=== PATIENT | male | born 1965 | race Two or more races ===

== ENCOUNTER 2016-11-23 17:54 | Emergency (ER) | payer BC | END 2016-11-23 18:34 | disposition left against medical advice (07) | LOC: ER 18:05 | DX: R10.9 Unspecified abdominal pain (principal); Z53.21 Procedure and treatment not carried out due to patient leaving prior to being seen by health care provider ==

== ENCOUNTER 2019-12-24 06:31 | Inpatient (IN) | payer BC ==
[~2019-12-24] VITALS: Ht 177.8 cm; Wt 79.3 kg
[~2019-12-24 06:31] MED LIST: ASPI-543 PO; ATOR20TA50 PO; INSU0.2I SC; LISI-646 PO; METF-370 PO; METO25TA5 PO; NITR0.4S29 SL
[2019-12-24] MEDS ORDERED: HEPARIN SODIUM (PORCINE) 5000 UNITS/ML 1ML VIAL ONE (07:50)
[2019-12-24] MEDS ORDERED: ANGIOMAX 250 MG VIAL IV ONE (07:50)
[2019-12-24] MEDS ORDERED: fentaNYL CITRATE 100 MCG/2 ML VL ONE (07:51)
[2019-12-24] MEDS ORDERED: IODIXANOL 320MG/ML 100ML BTL IV ONE (07:51)
[2019-12-24] MEDS ORDERED: SODIUM CHL 0.9% 0 ML ONE (07:51)
[2019-12-24] MEDS ORDERED: VERAPAMIL 2.5MG/ML INJ 2ML VIAL IV ONE (07:51)
[2019-12-24] MEDS ORDERED: MIDAZOLAM HCL 1MG/1ML-2 ML VIAL ONE (07:51)
[2019-12-24] MEDS ORDERED: LIDOCAINE 2%HCL (LOCAL ANESTH.) INJ 20ML MDV ONE (07:52)
[2019-12-24] MEDS ORDERED: diphenhdrAMINE HCL 50 MG/1 ML VL ONE (08:11)
[2019-12-24] MEDS ORDERED: HEPARIN DRIP/D5W 100UNITS/ML 250 ML IV SCH (08:37)
[2019-12-24] MEDS ORDERED: ONDANSETRON HCL 4 MG/2 ML VIAL IV PRN (08:45)
[2019-12-24] MEDS ORDERED: ACETAMINOPHEN 500 MG TAB PO PRN (08:45)
[2019-12-24] MEDS ORDERED: MORPHINE SULF INJ 2 MG/ML SYRINGE 1ML IV PRN (08:45)
[2019-12-24] MEDS ORDERED: HYDROcodone-ACET 5/325MG TAB PO PRN (08:45)
[2019-12-24] MEDS ORDERED: NITROGLYCERIN 0.4 MG SL TAB SL PRN (08:45)
[2019-12-24] MEDS ORDERED: hydrALAZINE HCL 20 MG/ML VL IV PRN (09:15)
[2019-12-24] MEDS ORDERED: LABETALOL HCL 5 MG/ML ML 20ML VIAL IV PRN (09:23)
[2019-12-24 09:30] LABS: Basophils # (auto) 0.1 10 ^3/uL (0-0.2); Basophils % (auto) 0.7 % (0.0-2.0); Eosinophils # (auto) 0.4 10 ^3/uL (0-0.8); Eosinophils % (auto) 3.2 % (0.0-7.0); Hematocrit 41.8 % (41.0-53.0); Hemoglobin 13.5 g/dL (13.5-17.5); Lymphocytes # (auto) 2.3 10 ^3/uL (0.4-5.4); Lymphocytes % (auto) 20.1 % (10.0-50.0); Mean Corpuscular Hemoglobin 28.1 pg (28.0-32.0); Mean Corpuscular Hgb Conc. 32.4 g/dL (32.0-36.0); Mean Corpuscular Volume 86.9 fL (80.0-100.0); Monocytes # (auto) 0.8 10 ^3/uL (0-1.3); Monocytes % (auto) 7.4 % (0.0-12.0); Neutrophils # (auto) 7.8 10 ^3/uL (1.6-8.6); Neutrophils % (auto) 68.6 % (37.0-80.0); Platelet Count (auto) 243 10^3/uL (140-450); Red Blood Cells 4.82 10^6/uL (4.5-5.90); Red Cell Distribution Width 12.9 % (11.8-14.3); White Blood Cell 11.3 10^3/uL (4.4-10.8)
[2019-12-24] MEDS ORDERED: LABETALOL HCL 5 MG/ML ML 20ML VIAL IV ONE (09:31)
[2019-12-24 10:00] VITALS: BP 188/91
--- NOTE | 2019-12-24 11:02 | NUR ---
RECEIVED PT FROM CHANNEL WORKER APPROX.1000. A/O X 4. VAS BAND TO LEFT WRIST IN PLACE. 2 ML OF AIR RELEASED EVERY 15 MINUTES, NO BLEEDING NOTED. BP 188/91, PT RECEIVED LABATELOL AT 0930, PER REPORT. PT DENIES PAIN. WILL CONTINUE TO MONITOR PT CLOSELY.
[2019-12-24 11:12] LABS: Calcium 9.5 mg/dL (8.5-10.1); Magnesium 2.5 mg/dL (1.6-2.6); Potassium 4.9 mmol/L (3.5-5.1)
[2019-12-24 11:14] LABS: BUN/Creatinine Ratio 20.3
--- NOTE | 2019-12-24 11:44 | NUR ---
1140 12/24/19 - Faxed to [facility] at [phone] and [facility] at [phone] face sheet, order for emergent/STAT transfer to [facility] for CABG. Pending review, accepting MD and bed availability.
--- NOTE | 2019-12-24 11:55 | NUR ---
bp 191/95, pulse 87. Dr. Birgit Branham paged at this time. pt denies pain.
[2019-12-24 12:00] VITALS: BP 191/95
[2019-12-24] MEDS ORDERED: HEPARIN SODIUM (PORCINE) 5000 UNITS/ML 1ML VIAL IV ONE (12:00)
[2019-12-24] MEDS: HEPARIN DRIP/D5W 100UNITS/ML 250 ML IV SCH (12:04)
[2019-12-24 12:15] LABS: INR 1.03 (0.9-1.15); Partial Thromboplastin Time 28.2 sec (23.0-31.2)
[2019-12-24] MEDS ORDERED: METOPROLOL TARTRATE 25 MG TAB PO ONE (12:15)
--- NOTE | 2019-12-24 12:21 | NUR ---
NEW ORDERS RECEIVED.
[2019-12-24] MEDS: METOPROLOL TARTRATE 1MG/1ML-5ML VIAL IV PRN ×2 (12:33→16:41)
[2019-12-24 13:05] VITALS: BP 181/95
--- NOTE | 2019-12-24 14:19 | NUR ---
ss consult Per consult for advanced directive. Patient has been provided with advanced directive. Addendum: 12/24/19 at 1419 by Juany Macdonald Amended: Links added.
--- NOTE | 2019-12-24 15:12 | NUR ---
SCAR TEST SENT TO LAB.
--- NOTE | 2019-12-24 15:44 | NUR ---
1540 12/24/19 - contacted by [facility] who provided accepting hospitalist Dr Arauz and accepting cardiothoracic surgeon is Dr Nunez, pending assigned bed and results of SCAR test. Pt has been placed on [facility] "will call" list with approved transportation authorization [id number]. Addendum: 12/24/19 at 1631 by Carrie Pena [facility] [id number] 12/24/19 - Faxed face sheet and COVID results to [facility] at [phone]. Transfer pending tele bed assignment.
[2019-12-24] MEDS ORDERED: DEXTROSE (50%) 50ML SYRG IV PRN (15:45)
[2019-12-24] MEDS: ACCU-CHEK COMFORT CURVE STRIP VI SCH ×2 (16:24→22:54)
[2019-12-24] MEDS: InsuLIN REG 1unit/0.01ml Soln (100units/ml) SC SCH ×2 (16:25→22:00)
--- NOTE | 2019-12-24 16:51 | NUR ---
BP 179/102. PULSE 78. METOPROLOL GIVEN IV ORDERED. MONITORING CLOSELY.
[2019-12-24 18:24] LABS: INR 1.05 (0.9-1.15); Partial Thromboplastin Time 38.2 sec (23.0-31.2)
--- NOTE | 2019-12-24 18:52 | NUR ---
PTT 38. HEPARIN DRIP INCREASED TO 1150, 11.5 ML/HOUR.
[2019-12-24 22:00] VITALS: BP 160/97
[2019-12-24] MEDS: METOPROLOL TARTRATE 25 MG TAB PO SCH (22:54)
--- NOTE | 2019-12-25 00:20 | NUR ---
Called lab to follow up on aptt lab draw. Lab advised they received it and will processes it shortly. notified it was for heparin drip.
[2019-12-25 01:14] LABS: INR 1.07 (0.9-1.15); Partial Thromboplastin Time 55.5 sec (23.0-31.2)
--- NOTE | 2019-12-25 01:32 | NUR ---
Aptt value is 55.5. per scale in emar no change no bolus. rate is currently 11.5 ml / hr.
--- NOTE | 2019-12-25 02:43 | NUR ---
Spoke to Armin nursing supervisor wall mirror department to follow up with bed availability. Armin advised there are no beds at this time and to check after 0800 am.
[2019-12-25 05:30] VITALS: BP 146/94
[2019-12-25] MEDS: HEPARIN DRIP/D5W 100UNITS/ML 250 ML IV SCH (06:13)
[2019-12-25] MEDS: InsuLIN REG 1unit/0.01ml Soln (100units/ml) SC SCH ×3 (06:18→17:00)
[2019-12-25] MEDS: ACCU-CHEK COMFORT CURVE STRIP VI SCH ×3 (06:18→17:00)
--- NOTE | 2019-12-25 06:40 | NUR ---
Called Lab to confirm lab draw for aptt. They said it will be done. awaiting for lab draw for heparin.
--- NOTE | 2019-12-25 07:00 | NUR ---
Second call to lab to follow up on ptptt lab draw for heparin drip. AIDE from lab advised that he will page again to water pollution control inspector. awaiting lab draw.
--- NOTE | 2019-12-25 07:15 | NUR ---
provided report to day rn. endorsed ptptt level for heparin parameters, to follow up with lab, transfer to [facility] for CABG and transfer/discharge paperwork. Resource RN did start discharge paperwork. MD Mckeon did spoke to day rn and myself saying that patient needs transfer CD for transfer.
[2019-12-25 07:28] LABS: INR 1.07 (0.9-1.15); Partial Thromboplastin Time 63.7 sec (23.0-31.2)
--- NOTE | 2019-12-25 07:30 | NUR ---
Opening shift note Patient AOx4 resting in bed. Update on POC and pending transfer to higher level of care. Patient verbalizes understanding. Patient running heparin drip at 11.5 ml/hr at this time. Bed in low position, locked, call light within reach, will continue care.
[2019-12-25 09:00] VITALS: BP 163/93
[2019-12-25] MEDS ORDERED: HEPARIN DRIP/D5W 100UNITS/ML 250 ML IV SCH (09:00)
--- NOTE | 2019-12-25 09:59 | NUR ---
0945 12/25/19 - Contacted by housekeeping room inspector at [facility], who stated currently no beds available, will have some discharges later today, Advised me to call back after 1300. Updated TAWANA Garsia on pending transfer status.
[2019-12-25] MEDS ORDERED: ASPirin 81 mg TAB PO SCH (10:00)
[2019-12-25] MEDS ORDERED: ATORVASTATIN 20 MG TAB PO SCH (10:00)
[2019-12-25] MEDS: METOPROLOL TARTRATE 25 MG TAB PO SCH (11:12)
--- NOTE | 2019-12-25 11:53 | NUR ---
In house Covid In-house Covid swab collected and taken to lab by this RN.
[2019-12-25 12:55] LABS: INR 1.07 (0.9-1.15); Partial Thromboplastin Time 63.5 sec (23.0-31.2)
[2019-12-25 13:00] VITALS: BP 132/78
--- NOTE | 2019-12-25 13:15 | NUR ---
No changes in Heparin rate at this time Updated PTT received of 63.5 seconds. Per protocol no changes in rate required at this time. Heparin Drip currently infusing at 11.5ml/Hr.
--- NOTE | 2019-12-25 16:05 | NUR ---
1600 12/25/19 - Contacted by [facility], transfer center coordinator, patient has been accepting by cardiothoracic service. Pending assignment of bed. Patient has been placed on [facility] "will call", transportation authorization is [id number].
[2019-12-25 17:00] VITALS: BP 128/79
--- NOTE | 2019-12-25 19:30 | NUR ---
Opening Shift Note Assumed care of patient after receiving report. Patient is awake and alert with no S/S of distress/SOB or pain. Call light within reach, bed in lowest locked position x2 side rails up, HOB semi fowlers. Instructed on POC and to call for assist PRN, will continue to monitor for changes Q1hr and PRN.
--- NOTE | 2019-12-25 19:30 | NUR ---
Handoff report Handoff report given to Malina GILLIAM. Nurse made aware that patient will be transferred to [facility] bed [address]. KENDELL nurse to call [facility] to give handoff report and obtain receiving MD information to process transfer. Patient and girlfriend Carol (via telephone) updated on POC at this time.
--- NOTE | 2019-12-25 20:37 | NUR ---
Report given Report given to Alban at [facility], . Patient to go to Tele 3, Station 2, Room 332-A. Admitting MD, Dr. Renteria.
--- NOTE | 2019-12-25 20:45 | NUR ---
Call to [facility] re transport Call placed to [facility], , regarding transport of patient to [facility]. Patient needs heparin gtt in transit, [facility] aware. ETA 60 minutes per [facility]. Will update patient and family.
--- NOTE | 2019-12-25 21:02 | NUR ---
Update patient / family Updated patient and call to zulay Medina , updated on plan of care and estimated time of transport to be in about 60 minutes per [facility]. Patient and verbalized understanding and all questions and concerns addressed at this time.
--- NOTE | 2019-12-25 22:07 | NUR ---
Patient off unit. [facility] transport.
== END 2019-12-25 22:07 | disposition short-term general hospital (02) | DRG 287 ==
LOC: CATH 06:31 → TELE-WESTW 10:03
PROVIDERS: ADMIT Internal Medicine; ATTEND Internal Medicine
PROC: 4A023N7 Measurement of Cardiac Sampling and Pressure, Left Heart, Percutaneous Approach (ICD-10-PCS; principal; 2019-12-24)
PROC: B211YZZ Fluoroscopy of Multiple Coronary Arteries using Other Contrast (ICD-10-PCS; 2019-12-24)
PROC: B215YZZ Fluoroscopy of Left Heart using Other Contrast (ICD-10-PCS; 2019-12-24)
DX: I25.119 Atherosclerotic heart disease of native coronary artery with unspecified angina pectoris (principal); I10 Essential (primary) hypertension; E11.9 Type 2 diabetes mellitus without complications; E78.5 Hyperlipidemia, unspecified; Z20.828 Contact with and (suspected) exposure to other viral communicable diseases
CPT/HCPCS: 36415; 80048; 82962; 83735; 85025; 85610; 85730; 87426; 93005; 93458; 99152; G0378; J2250; Q9967

== ENCOUNTER 2021-10-21 00:05 | Emergency (ER) | payer BC ==
[~2021-10-21] VITALS: Ht 177.8 cm; Wt 77.1 kg
[~2021-10-21 00:05] MED LIST changes: -LISI-646 PO; +LISI20TA28 PO
[2021-10-21] MEDS ORDERED: KETOROLAC TROMETH 30 MG/ML 1ML VIAL IV ONE (00:45)
[2021-10-21 01:01] LABS: Basophils # (auto) 0.1 10 ^3/uL (0-0.2); Basophils % (auto) 0.7 % (0.0-2.0); Eosinophils # (auto) 0.2 10 ^3/uL (0-0.8); Eosinophils % (auto) 1.8 % (0.0-7.0); Hemoglobin 13.5 g/dL (13.5-17.5); Lymphocytes # (auto) 1.5 10 ^3/uL (0.4-5.4); Mean Corpuscular Hemoglobin 29.2 pg (28.0-32.0); Mean Corpuscular Volume 88.3 fL (80.0-100.0); Monocytes # (auto) 0.9 10 ^3/uL (0-1.3); Monocytes % (auto) 7.5 % (0.0-12.0); Neutrophils # (auto) 8.8 10 ^3/uL (1.6-8.6); Nucleated Red Blood Cells % 0.1 %; Red Blood Cells 4.64 10^6/uL (4.5-5.90); Red Cell Distribution Width 13.2 % (11.8-14.3); White Blood Cell 11.4 10^3/uL (4.4-10.8)
[2021-10-21 01:23] LABS: Albumin 4.1 g/dL (3.4-5.0); BUN/Creatinine Ratio 17.8; Calcium 9.5 mg/dL (8.5-10.1); Potassium 4.3 mmol/L (3.5-5.1)
[2021-10-21 01:25] LABS: Bilirubin, Total 0.5 mg/dL (0.2-1.0); Total Protein 7.8 g/dL (6.4-8.2)
[2021-10-21 02:39] VITALS: BP 167/77
== END 2021-10-21 03:05 | disposition home or self-care (01) ==
LOC: ER 00:05
DX: N20.0 Calculus of kidney (principal); E11.9 Type 2 diabetes mellitus without complications; Z95.1 Presence of aortocoronary bypass graft
CPT/HCPCS: 36415; 74176; 80053; 83690; 84484; 85025; 93005; 96374; 99285; J1885

== ENCOUNTER 2021-10-22 10:27 | Inpatient (IN) | payer BC ==
[~2021-10-22] VITALS: Ht 177.8 cm; Wt 90.3 kg
[2021-10-22] MEDS ORDERED: TAMSULOSIN HYDROCHLORIDE 0.4 MG CAP PO ONE (11:00)
[2021-10-22] MEDS ORDERED: ONDANSETRON HCL 4 MG/2 ML VIAL IV ONE (11:00)
[2021-10-22] MEDS ORDERED: KETOROLAC TROMETH 30 MG/ML 1ML VIAL IV ONE (11:00)
[2021-10-22 11:25] LABS: Basophils # (auto) 0.1 10 ^3/uL (0-0.2); Basophils % (auto) 0.4 % (0.0-2.0); Eosinophils # (auto) 0 10 ^3/uL (0-0.8); Hemoglobin 13.9 g/dL (13.5-17.5); Lymphocytes % (auto) 4.5 % (10.0-50.0); Mean Corpuscular Hemoglobin 28.8 pg (28.0-32.0); Mean Corpuscular Hgb Conc. 33.2 g/dL (32.0-36.0); Mean Corpuscular Volume 86.9 fL (80.0-100.0); Monocytes # (auto) 1.8 10 ^3/uL (0-1.3); Monocytes % (auto) 7.9 % (0.0-12.0); Neutrophils # (auto) 19.8 10 ^3/uL (1.6-8.6); Neutrophils % (auto) 87.2 % (37.0-80.0); Nucleated Red Blood Cells % 0.1 %; Red Blood Cells 4.83 10^6/uL (4.5-5.90); Red Cell Distribution Width 12.9 % (11.8-14.3); White Blood Cell 22.8 10^3/uL (4.4-10.8)
[2021-10-22 11:31] LABS: Urine Bacteria NONE SEEN /hpf (None Seen); Urine Blood Negative /uL (Negative); Urine Mucus FEW (None Seen); Urine Specific Gravity 1.025 (1.001-1.035); Urine WBC 10 /hpf (0 - 3)
[2021-10-22 11:42] LABS: Albumin 3.8 g/dL (3.4-5.0); BUN/Creatinine Ratio 13.9; Calcium 9.3 mg/dL (8.5-10.1); Potassium 4.1 mmol/L (3.5-5.1)
[2021-10-22 11:45] LABS: Bilirubin, Total 1.3 mg/dL (0.2-1.0)
[2021-10-22] MEDS ORDERED: LISINOPRIL 10 MG TAB PO ONE (12:00)
[2021-10-22] MEDS ORDERED: cefTRIAXone 1GM/50ML D5W 50 ML IV ONE (13:30)
[2021-10-22] MEDS ORDERED: metroNIDAZOLE 500MG/100ML 100 ML IV ONE (13:30)
[2021-10-22] MEDS ORDERED: DEXTROSE (50%) 50ML SYRG IV PRN (13:45)
[2021-10-22] MEDS: SODIUM CHLORIDE 0.9% 1,000 ML IV SCH (14:09)
[2021-10-22] MEDS ORDERED: NITROGLYCERIN 0.4 MG SL TAB SL PRN (14:30)
[2021-10-22] MEDS ORDERED: MORPHINE SULFATE INJ 2 MG/ml SYRG IV PRN ×2 (14:30→21:30)
[2021-10-22] MEDS: HYDROcodone-ACET 5/325MG TAB PO PRN ×3 (16:31→23:45)
[2021-10-22] MEDS: ACCU-CHEK COMFORT CURVE STRIP VI SCH ×2 (17:37→21:44)
[2021-10-22] MEDS: InsuLIN REG 1unit/0.01ml Soln (100units/ml) SC SCH ×2 (17:37→21:10)
[2021-10-22] MEDS: ONDANSETRON HCL 4 MG/2 ML VIAL IV PRN (18:56)
[2021-10-22] MEDS: hydrALAZINE HCL 20 MG/ML VL IV PRN (18:58)
[2021-10-22] MEDS: METOPROLOL TARTRATE 50 MG TAB PO SCH (21:45)
[2021-10-22] MEDS: metroNIDAZOLE 500MG/100ML 100 ML IV SCH (21:49)
[2021-10-22 22:00] VITALS: BP 129/102
[2021-10-23] MEDS: HYDROmorphone HCL 2 MG/ML VL/or syr IV PRN ×3 (02:01→18:59)
[2021-10-23 05:00] VITALS: BP 100/48
[2021-10-23] MEDS: metroNIDAZOLE 500MG/100ML 100 ML IV SCH ×3 (06:17→23:20)
[2021-10-23] MEDS: SODIUM CHLORIDE 0.9% 1,000 ML IV SCH ×2 (06:17→23:20)
[2021-10-23] MEDS: InsuLIN REG 1unit/0.01ml Soln (100units/ml) SC SCH ×4 (06:20→23:10)
[2021-10-23 06:32] LABS: Hematocrit 38.4 % (41.0-53.0); Hemoglobin 13.1 g/dL (13.5-17.5); Mean Corpuscular Hemoglobin 29.8 pg (28.0-32.0); Mean Corpuscular Volume 87.5 fL (80.0-100.0)
[2021-10-23] MEDS: ACCU-CHEK COMFORT CURVE STRIP VI SCH ×4 (06:43→23:20)
[2021-10-23] MEDS: HYDROcodone-ACET 5/325MG TAB PO PRN ×3 (06:44→16:14)
[2021-10-23 06:45] LABS: Albumin 3.2 g/dL (3.4-5.0); BUN/Creatinine Ratio 17.4; Calcium 8.6 mg/dL (8.5-10.1); Potassium 4.3 mmol/L (3.5-5.1)
[2021-10-23 06:48] LABS: Bilirubin, Total 0.9 mg/dL (0.2-1.0); Total Protein 7.6 g/dL (6.4-8.2)
[2021-10-23] MEDS: hydrALAZINE HCL 20 MG/ML VL IV PRN (06:50)
[2021-10-23 06:58] LABS: Basophils % (manual) 0 (0.0-2.0); Blast Cells 0; Eosinophils % (manual) 0 (0-7); Metamyelocytes % 0; Myelocytes % 0; Promyelocytes % 0; Reactive Lymphocytes 0
[2021-10-23] MEDS: cefTRIAXone 1GM/50ML D5W 50 ML IV SCH (08:34)
[2021-10-23 09:05] VITALS: BP 152/78
[2021-10-23] MEDS: METOPROLOL TARTRATE 50 MG TAB PO SCH ×2 (09:42→23:21)
[2021-10-23] MEDS: FAMOTIDINE (10MG/ML) 2ML VL IV SCH (09:43)
[2021-10-23 10:33] LABS: Band Neutrophils % (manual) 7; Lymphocytes % (manual) 3 (10.0-50.0); Monocytes % (manual) 8 (0-12)
[2021-10-23 13:00] VITALS: BP 128/64
[2021-10-23 17:00] VITALS: BP 139/76
[2021-10-23] MEDS: TAMSULOSIN HYDROCHLORIDE 0.4 MG CAP PO SCH (18:00)
[2021-10-23 22:00] VITALS: BP 143/70
[2021-10-24] MEDS: HYDROmorphone HCL 2 MG/ML VL/or syr IV PRN ×3 (00:57→13:43)
[2021-10-24 05:00] VITALS: BP 146/76
[2021-10-24] MEDS: HYDROcodone-ACET 5/325MG TAB PO PRN ×3 (05:28→18:45)
[2021-10-24 06:06] LABS: Basophils # (auto) 0 10 ^3/uL (0-0.2); Eosinophils # (auto) 0 10 ^3/uL (0-0.8); Hematocrit 37.5 % (41.0-53.0); Hemoglobin 12.3 g/dL (13.5-17.5); Lymphocytes # (auto) 0.5 10 ^3/uL (0.4-5.4); Lymphocytes % (auto) 1.7 % (10.0-50.0); Mean Corpuscular Hemoglobin 28.8 pg (28.0-32.0); Mean Corpuscular Hgb Conc. 32.8 g/dL (32.0-36.0); Mean Corpuscular Volume 87.7 fL (80.0-100.0); Monocytes # (auto) 1.6 10 ^3/uL (0-1.3); Monocytes % (auto) 5.5 % (0.0-12.0); Neutrophils # (auto) 27.4 10 ^3/uL (1.6-8.6); Neutrophils % (auto) 92.8 % (37.0-80.0); Red Blood Cells 4.27 10^6/uL (4.5-5.90); Red Cell Distribution Width 13.1 % (11.8-14.3); White Blood Cell 29.6 10^3/uL (4.4-10.8)
[2021-10-24 06:19] LABS: Albumin 2.7 g/dL (3.4-5.0); Calcium 8.2 mg/dL (8.5-10.1); Potassium 4.2 mmol/L (3.5-5.1)
[2021-10-24 06:23] LABS: BUN/Creatinine Ratio 22.2; Bilirubin, Total 0.6 mg/dL (0.2-1.0); Total Protein 7.2 g/dL (6.4-8.2)
[2021-10-24] MEDS: InsuLIN REG 1unit/0.01ml Soln (100units/ml) SC SCH ×4 (06:54→22:02)
[2021-10-24] MEDS: metroNIDAZOLE 500MG/100ML 100 ML IV SCH ×3 (06:59→22:00)
[2021-10-24] MEDS: ACCU-CHEK COMFORT CURVE STRIP VI SCH ×4 (07:06→22:01)
[2021-10-24 09:00] VITALS: BP 136/73
[2021-10-24] MEDS: cefTRIAXone 1GM/50ML D5W 50 ML IV SCH (09:00)
[2021-10-24] MEDS: METOPROLOL TARTRATE 50 MG TAB PO SCH ×2 (10:00→22:00)
[2021-10-24] MEDS: FAMOTIDINE (10MG/ML) 2ML VL IV SCH (10:00)
[2021-10-24 13:00] VITALS: BP 151/75
[2021-10-24] MEDS: SODIUM CHLORIDE 0.9% 1,000 ML IV SCH (15:45)
[2021-10-24 17:23] VITALS: BP 134/67
[2021-10-24] MEDS: TAMSULOSIN HYDROCHLORIDE 0.4 MG CAP PO SCH (18:00)
[2021-10-24 18:39] LABS: Basophils # (auto) 0 10 ^3/uL (0-0.2); Eosinophils # (auto) 0 10 ^3/uL (0-0.8); Hematocrit 35.9 % (41.0-53.0); Hemoglobin 11.5 g/dL (13.5-17.5); Lymphocytes # (auto) 0.6 10 ^3/uL (0.4-5.4); Lymphocytes % (auto) 2.6 % (10.0-50.0); Mean Corpuscular Hemoglobin 28.3 pg (28.0-32.0); Mean Corpuscular Volume 88.5 fL (80.0-100.0); Monocytes # (auto) 1.6 10 ^3/uL (0-1.3); Monocytes % (auto) 6.5 % (0.0-12.0); Neutrophils # (auto) 21.7 10 ^3/uL (1.6-8.6); Neutrophils % (auto) 90.9 % (37.0-80.0); Red Blood Cells 4.06 10^6/uL (4.5-5.90); Red Cell Distribution Width 13.3 % (11.8-14.3); White Blood Cell 23.9 10^3/uL (4.4-10.8)
[2021-10-24 18:58] LABS: Albumin 2.6 g/dL (3.4-5.0); BUN/Creatinine Ratio 28.1; Calcium 8.2 mg/dL (8.5-10.1)
[2021-10-24 19:01] LABS: Bilirubin, Total 0.5 mg/dL (0.2-1.0); Total Protein 6.6 g/dL (6.4-8.2)
[2021-10-24 22:00] VITALS: BP 150/74
[2021-10-24] MEDS: ACETAMINOPHEN 325 MG TAB PO PRN (22:01)
[2021-10-25] MEDS: HYDROmorphone HCL 2 MG/ML VL/or syr IV PRN ×3 (00:26→22:53)
[2021-10-25 05:00] VITALS: BP 153/75
[2021-10-25] MEDS: metroNIDAZOLE 500MG/100ML 100 ML IV SCH ×3 (06:28→22:16)
[2021-10-25] MEDS: ACCU-CHEK COMFORT CURVE STRIP VI SCH ×4 (06:39→22:16)
[2021-10-25 06:40] LABS: Basophils # (auto) 0 10 ^3/uL (0-0.2); Basophils % (auto) 0.1 % (0.0-2.0); Eosinophils # (auto) 0 10 ^3/uL (0-0.8); Hematocrit 36.8 % (41.0-53.0); Lymphocytes # (auto) 0.6 10 ^3/uL (0.4-5.4); Lymphocytes % (auto) 2.5 % (10.0-50.0); Mean Corpuscular Hemoglobin 28.7 pg (28.0-32.0); Mean Corpuscular Hgb Conc. 32.7 g/dL (32.0-36.0); Mean Corpuscular Volume 87.8 fL (80.0-100.0); Monocytes # (auto) 1.6 10 ^3/uL (0-1.3); Monocytes % (auto) 6.5 % (0.0-12.0); Neutrophils # (auto) 21.9 10 ^3/uL (1.6-8.6); Neutrophils % (auto) 90.9 % (37.0-80.0); Nucleated Red Blood Cells % 0.1 %; Red Blood Cells 4.19 10^6/uL (4.5-5.90); Red Cell Distribution Width 13.4 % (11.8-14.3); White Blood Cell 24.1 10^3/uL (4.4-10.8)
[2021-10-25] MEDS: InsuLIN REG 1unit/0.01ml Soln (100units/ml) SC SCH ×4 (06:40→22:17)
[2021-10-25 06:56] LABS: Potassium 4.1 mmol/L (3.5-5.1)
[2021-10-25 07:01] LABS: Albumin 2.5 g/dL (3.4-5.0); BUN/Creatinine Ratio 28.6; Calcium 8.3 mg/dL (8.5-10.1)
[2021-10-25 07:04] LABS: Bilirubin, Total 0.6 mg/dL (0.2-1.0); Total Protein 6.5 g/dL (6.4-8.2)
[2021-10-25 08:00] VITALS: BP 165/83
[2021-10-25] MEDS: SODIUM CHLORIDE 0.9% 1,000 ML IV SCH (08:25)
[2021-10-25] MEDS: cefTRIAXone 1GM/50ML D5W 50 ML IV SCH (08:29)
[2021-10-25 09:00] VITALS: BP 165/83
[2021-10-25 09:20] LABS: INR 1.19 (0.9-1.15); Partial Thromboplastin Time 40.9 sec (23.6-33.0)
[2021-10-25] MEDS: FAMOTIDINE (10MG/ML) 2ML VL IV SCH (09:47)
[2021-10-25] MEDS: METOPROLOL TARTRATE 50 MG TAB PO SCH ×2 (09:48→22:16)
[2021-10-25 13:00] VITALS: BP 158/80
[2021-10-25 17:00] VITALS: BP 150/81
[2021-10-25] MEDS: TAMSULOSIN HYDROCHLORIDE 0.4 MG CAP PO SCH (17:30)
[2021-10-25 22:00] VITALS: BP 154/79
[2021-10-25] MEDS: ACETAMINOPHEN 325 MG TAB PO PRN (22:17)
[2021-10-26] VITALS (8 sets, daily range): BP systolic 123–179; BP diastolic 77–84
[2021-10-26] MEDS: SODIUM CHLORIDE 0.9% 1,000 ML IV SCH ×2 (00:11→18:54)
[2021-10-26 06:01] LABS: Hematocrit 38.5 % (41.0-53.0); Hemoglobin 12.4 g/dL (13.5-17.5); Mean Corpuscular Hemoglobin 28.4 pg (28.0-32.0); Mean Corpuscular Hgb Conc. 32.2 g/dL (32.0-36.0); Mean Corpuscular Volume 88.4 fL (80.0-100.0); Red Blood Cells 4.36 10^6/uL (4.5-5.90); Red Cell Distribution Width 13.2 % (11.8-14.3); White Blood Cell 26.1 10^3/uL (4.4-10.8)
[2021-10-26] MEDS: metroNIDAZOLE 500MG/100ML 100 ML IV SCH ×3 (06:10→22:41)
[2021-10-26] MEDS: InsuLIN REG 1unit/0.01ml Soln (100units/ml) SC SCH ×4 (06:10→22:43)
[2021-10-26] MEDS: ACCU-CHEK COMFORT CURVE STRIP VI SCH ×4 (06:10→22:00)
[2021-10-26 06:15] LABS: Albumin 2.2 g/dL (3.4-5.0); Band Neutrophils % (manual) 0; Blast Cells 0; Calcium 8.2 mg/dL (8.5-10.1); Eosinophils % (manual) 0 (0-7); Metamyelocytes % 0; Myelocytes % 0; Potassium 4.3 mmol/L (3.5-5.1); Promyelocytes % 0; Reactive Lymphocytes 0
[2021-10-26 06:18] LABS: BUN/Creatinine Ratio 21.9; Bilirubin, Total 0.6 mg/dL (0.2-1.0); Total Protein 6.5 g/dL (6.4-8.2)
[2021-10-26] MEDS: cefTRIAXone 1GM/50ML D5W 50 ML IV SCH (07:53)
[2021-10-26] MEDS: HYDROmorphone HCL 2 MG/ML VL/or syr IV PRN ×2 (07:53→20:19)
[2021-10-26 08:30] LABS: Basophils % (manual) 1 (0.0-2.0); Lymphocytes % (manual) 6 (10.0-50.0); Monocytes % (manual) 10 (0-12)
[2021-10-26] MEDS: METOPROLOL TARTRATE 50 MG TAB PO SCH ×2 (10:00→22:41)
[2021-10-26] MEDS: FAMOTIDINE (10MG/ML) 2ML VL IV SCH (10:11)
[2021-10-26] MEDS: TAMSULOSIN HYDROCHLORIDE 0.4 MG CAP PO SCH (18:50)
[2021-10-26] MEDS: hydrALAZINE HCL 20 MG/ML VL IV PRN (20:18)
[2021-10-27] MEDS: SODIUM CHLORIDE 0.9% 1,000 ML IV SCH (05:19)
[2021-10-27] MEDS: metroNIDAZOLE 500MG/100ML 100 ML IV SCH ×3 (05:21→22:17)
[2021-10-27 05:33] VITALS: BP 162/80
[2021-10-27 05:43] LABS: INR 1.24 (0.9-1.15); Partial Thromboplastin Time 35.6 sec (23.6-33.0)
[2021-10-27] MEDS ORDERED: ceFAZolin 1GM/50ML 100 ML IV ONE (06:48)
[2021-10-27] MEDS: InsuLIN REG 1unit/0.01ml Soln (100units/ml) SC SCH ×4 (07:00→22:20)
[2021-10-27] MEDS ORDERED: SUCCINYLCHOLINE CHLORIDE 20 MG/ML 10ML VIAL IV ONE (07:11)
[2021-10-27] MEDS ORDERED: MIDAZOLAM HCL 2MG/2ML 2ml VIAL (1mg/ml) ONE (07:13)
[2021-10-27] MEDS ORDERED: fentaNYL CITRATE 100 MCG/2 ML VL ONE (07:13)
[2021-10-27] MEDS ORDERED: BUPIVACAINE 0.25% INJ 50ML VIAL ONE (07:17)
[2021-10-27] MEDS ORDERED: ONDANSETRON HCL 4 MG/2 ML VIAL ONE (07:25)
[2021-10-27] MEDS ORDERED: NEOSTIGMINE 1 MG/ML INJ (10mg/10ML VIAL) ONE (07:25)
[2021-10-27] MEDS ORDERED: GLYCOPYRROLATE 0.2 MG/ML 1ML VIAL ONE (07:25)
[2021-10-27] MEDS ORDERED: METOCLOPRAMIDE HCL 5MG/ml INJ 2ml VIAL ONE (07:25)
[2021-10-27] MEDS ORDERED: PROPOFOL 10 MG/ML 20 ML IV ONE (07:25)
[2021-10-27] MEDS ORDERED: LIDOCAINE 2% (LOCAL ANESTH.) PF 5ml SDV ONE (07:25)
[2021-10-27] MEDS ORDERED: DexAMETHasone SOD PHOS 10MG/1ML VIAL INJ ONE (07:25)
[2021-10-27] MEDS: ACCU-CHEK COMFORT CURVE STRIP VI SCH ×4 (08:39→22:20)
[2021-10-27] MEDS ORDERED: METOCLOPRAMIDE HCL 5MG/ml INJ 2ml VIAL IV PRN (09:00)
[2021-10-27] MEDS ORDERED: ONDANSETRON HCL 4 MG/2 ML VIAL IV PRN (09:00)
[2021-10-27] MEDS ORDERED: ACCU-CHEK COMFORT CURVE STRIP VI ONE (09:00)
[2021-10-27] MEDS ORDERED: ePHEDrine SULFATE 50 MG/ML AMP IV PRN (09:00)
[2021-10-27] MEDS ORDERED: fentaNYL CITRATE 100 MCG/2 ML VL IV PRN (09:00)
[2021-10-27] MEDS: HYDROmorphone HCL 2 MG/ML VL/or syr IV PRN ×2 (09:12→09:22)
[2021-10-27] MEDS: cefTRIAXone 1GM/50ML D5W 50 ML IV SCH (10:26)
[2021-10-27] MEDS: METOPROLOL TARTRATE 50 MG TAB PO SCH ×2 (10:26→22:18)
[2021-10-27] MEDS: FAMOTIDINE (10MG/ML) 2ML VL IV SCH (10:26)
[2021-10-27] MEDS: D5W/SOD CHL 0.45%/KCL 20MEQ 1,000 ML IV SCH ×2 (11:32→16:50)
[2021-10-27 13:00] VITALS: BP 157/82
[2021-10-27 17:00] VITALS: BP 150/75
[2021-10-27] MEDS: TAMSULOSIN HYDROCHLORIDE 0.4 MG CAP PO SCH (17:44)
[2021-10-27 20:00] VITALS: BP 163/77
[2021-10-27 21:44] VITALS: BP 141/54
[2021-10-27] MEDS: HYDROcodone-ACET 5/325MG TAB PO PRN (23:30)
[2021-10-28] MEDS: D5W/SOD CHL 0.45%/KCL 20MEQ 1,000 ML IV SCH ×3 (03:58→17:50)
[2021-10-28 05:00] VITALS: BP 143/72
[2021-10-28] MEDS: metroNIDAZOLE 500MG/100ML 100 ML IV SCH ×3 (05:50→21:33)
[2021-10-28 06:45] LABS: Basophils # (auto) 0 10 ^3/uL (0-0.2); Eosinophils # (auto) 0 10 ^3/uL (0-0.8); Hematocrit 32.3 % (41.0-53.0); Hemoglobin 10.6 g/dL (13.5-17.5); Lymphocytes # (auto) 0.3 10 ^3/uL (0.4-5.4); Lymphocytes % (auto) 1.4 % (10.0-50.0); Mean Corpuscular Hemoglobin 28.8 pg (28.0-32.0); Mean Corpuscular Hgb Conc. 32.8 g/dL (32.0-36.0); Mean Corpuscular Volume 87.7 fL (80.0-100.0); Monocytes # (auto) 1.1 10 ^3/uL (0-1.3); Monocytes % (auto) 4.7 % (0.0-12.0); Neutrophils # (auto) 22.6 10 ^3/uL (1.6-8.6); Neutrophils % (auto) 93.9 % (37.0-80.0); Red Blood Cells 3.69 10^6/uL (4.5-5.90); Red Cell Distribution Width 13.8 % (11.8-14.3); White Blood Cell 24.1 10^3/uL (4.4-10.8)
[2021-10-28] MEDS: InsuLIN REG 1unit/0.01ml Soln (100units/ml) SC SCH ×4 (07:00→21:39)
[2021-10-28] MEDS: ACCU-CHEK COMFORT CURVE STRIP VI SCH ×4 (07:02→21:34)
[2021-10-28 08:31] VITALS: BP 145/75
[2021-10-28] MEDS: cefTRIAXone 1GM/50ML D5W 50 ML IV SCH (08:45)
[2021-10-28] MEDS: FAMOTIDINE (10MG/ML) 2ML VL IV SCH (08:46)
[2021-10-28] MEDS: METOPROLOL TARTRATE 50 MG TAB PO SCH ×2 (08:48→21:34)
[2021-10-28 12:43] VITALS: BP 138/73
[2021-10-28 16:46] VITALS: BP 145/75
[2021-10-28] MEDS: ONDANSETRON HCL 4 MG/2 ML VIAL IV PRN (17:06)
[2021-10-28] MEDS: TAMSULOSIN HYDROCHLORIDE 0.4 MG CAP PO SCH (18:00)
[2021-10-28 22:22] VITALS: BP 147/84
[2021-10-28] MEDS: HYDROmorphone HCL 2 MG/ML VL/or syr IV PRN (23:31)
[2021-10-29] MEDS: D5W/SOD CHL 0.45%/KCL 20MEQ 1,000 ML IV SCH ×3 (04:16→18:50)
[2021-10-29 05:00] VITALS: BP 171/82
[2021-10-29] MEDS: ACCU-CHEK COMFORT CURVE STRIP VI SCH ×4 (06:04→22:00)
[2021-10-29] MEDS: InsuLIN REG 1unit/0.01ml Soln (100units/ml) SC SCH ×4 (06:08→22:51)
[2021-10-29 06:12] LABS: Basophils # (auto) 0 10 ^3/uL (0-0.2); Basophils % (auto) 0.1 % (0.0-2.0); Eosinophils # (auto) 0 10 ^3/uL (0-0.8); Eosinophils % (auto) 0.2 % (0.0-7.0); Hematocrit 34.3 % (41.0-53.0); Hemoglobin 11.1 g/dL (13.5-17.5); Lymphocytes # (auto) 0.8 10 ^3/uL (0.4-5.4); Lymphocytes % (auto) 3.9 % (10.0-50.0); Mean Corpuscular Hemoglobin 28.2 pg (28.0-32.0); Mean Corpuscular Hgb Conc. 32.3 g/dL (32.0-36.0); Mean Corpuscular Volume 87.4 fL (80.0-100.0); Monocytes # (auto) 1.1 10 ^3/uL (0-1.3); Monocytes % (auto) 5.5 % (0.0-12.0); Neutrophils # (auto) 17.9 10 ^3/uL (1.6-8.6); Neutrophils % (auto) 90.3 % (37.0-80.0); Red Blood Cells 3.93 10^6/uL (4.5-5.90); Red Cell Distribution Width 13.8 % (11.8-14.3); White Blood Cell 19.8 10^3/uL (4.4-10.8)
[2021-10-29] MEDS: metroNIDAZOLE 500MG/100ML 100 ML IV SCH ×3 (06:20→22:48)
[2021-10-29 08:00] VITALS: BP 150/80
[2021-10-29 08:10] VITALS: BP_SYST 135; BP_SYST 169; BP_DIAS 79; BP_DIAS 86
[2021-10-29] MEDS: cefTRIAXone 1GM/50ML D5W 50 ML IV SCH (09:32)
[2021-10-29] MEDS: FAMOTIDINE (10MG/ML) 2ML VL IV SCH (09:33)
[2021-10-29] MEDS: METOPROLOL TARTRATE 50 MG TAB PO SCH ×2 (09:34→22:49)
[2021-10-29 12:00] VITALS: BP 147/104
[2021-10-29 16:00] VITALS: BP 169/85
[2021-10-29] MEDS: TAMSULOSIN HYDROCHLORIDE 0.4 MG CAP PO SCH (19:07)
[2021-10-29 22:17] VITALS: BP 177/79
[2021-10-29] MEDS: hydrALAZINE HCL 20 MG/ML VL IV PRN (22:50)
[2021-10-30] MEDS: D5W/SOD CHL 0.45%/KCL 20MEQ 1,000 ML IV SCH ×2 (03:10→11:30)
[2021-10-30 05:00] VITALS: BP 171/81
[2021-10-30] MEDS: metroNIDAZOLE 500MG/100ML 100 ML IV SCH ×2 (06:00→14:00)
[2021-10-30 06:21] LABS: Basophils # (auto) 0 10 ^3/uL (0-0.2); Eosinophils # (auto) 0.4 10 ^3/uL (0-0.8); Nucleated Red Blood Cells % 0.1 %; Red Cell Distribution Width 13.7 % (11.8-14.3); White Blood Cell 10.7 10^3/uL (4.4-10.8)
[2021-10-30 06:24] LABS: Basophils % (auto) 0.1 % (0.0-2.0); Eosinophils % (auto) 4.1 % (0.0-7.0); Hematocrit 35.3 % (41.0-53.0); Hemoglobin 11.8 g/dL (13.5-17.5); Lymphocytes # (auto) 1.3 10 ^3/uL (0.4-5.4); Lymphocytes % (auto) 11.7 % (10.0-50.0); Mean Corpuscular Hemoglobin 28.9 pg (28.0-32.0); Mean Corpuscular Hgb Conc. 33.4 g/dL (32.0-36.0); Mean Corpuscular Volume 86.3 fL (80.0-100.0); Monocytes % (auto) 9.4 % (0.0-12.0); Neutrophils % (auto) 74.7 % (37.0-80.0); Red Blood Cells 4.09 10^6/uL (4.5-5.90)
[2021-10-30] MEDS: ACCU-CHEK COMFORT CURVE STRIP VI SCH ×2 (07:00→12:29)
[2021-10-30] MEDS: InsuLIN REG 1unit/0.01ml Soln (100units/ml) SC SCH ×2 (07:00→12:28)
[2021-10-30 08:00] VITALS: BP 174/87
[2021-10-30] MEDS ORDERED: METR500T PO (08:51)
[2021-10-30] MEDS ORDERED: LEVO750T8 PO (08:51)
[2021-10-30] MEDS ORDERED: PANT40T PO (08:51)
[2021-10-30] MEDS ORDERED: HYDR-4902 PO (08:51)
[2021-10-30 08:53] VITALS: BP 140/80
[2021-10-30] MEDS: cefTRIAXone 1GM/50ML D5W 50 ML IV SCH (09:00)
[2021-10-30] MEDS: METOPROLOL TARTRATE 50 MG TAB PO SCH (09:55)
[2021-10-30] MEDS: FAMOTIDINE (10MG/ML) 2ML VL IV SCH (09:55)
[2021-10-30 12:00] VITALS: BP 169/90
[2021-10-30 14:45] VITALS: BP 120/70
== END 2021-10-30 15:50 | disposition home or self-care (01) | DRG 853 ==
LOC: ER 10:27 → UNDOADMIN 14:17 → OVERFLOW 14:17 → WEST WING 20:45
PROVIDERS: ADMIT Nurse Practitioner Family; ATTEND Family Medicine
PROC: 0FT44ZZ Resection of Gallbladder, Percutaneous Endoscopic Approach (ICD-10-PCS; principal; 2021-10-27 07:30)
DX: A41.9 Sepsis, unspecified organism (principal); J18.9 Pneumonia, unspecified organism; E11.52 Type 2 diabetes mellitus with diabetic peripheral angiopathy with gangrene; N17.9 Acute kidney failure, unspecified; K80.00 Calculus of gallbladder with acute cholecystitis without obstruction; N13.6 Pyonephrosis; E78.5 Hyperlipidemia, unspecified; I10 Essential (primary) hypertension; D72.829 Elevated white blood cell count, unspecified; E78.00 Pure hypercholesterolemia, unspecified; K66.0 Peritoneal adhesions (postprocedural) (postinfection); E11.40 Type 2 diabetes mellitus with diabetic neuropathy, unspecified; E11.21 Type 2 diabetes mellitus with diabetic nephropathy; Z20.822 Contact with and (suspected) exposure to COVID-19; I25.10 Atherosclerotic heart disease of native coronary artery without angina pectoris; Z79.4 Long term (current) use of insulin; Z95.1 Presence of aortocoronary bypass graft; Z87.442 Personal history of urinary calculi; Z79.899 Other long term (current) drug therapy
CPT/HCPCS: 36415; 71045; 74176; 76705; 78226; 80053; 81001; 82247; 82962; 83036; 83605; 83690; 85007; 85025; 85027; 85610; 85730; 86850; 86900; 86901; 87040; 87086; 93005; 93306; 93925; 93971; 96365; 96368; 96375; 96376; G0378; J0330; J0690; J0696; J1100; J1815; J1885; J2001; J2250; J2405; J2704; J3490